=== PATIENT | male | born 1970 | race Caucasian/White ===

== ENCOUNTER 2018-07-19 20:52 | Emergency (ER) | payer MEDICAID, OTHER ==
[~2018-07-19] VITALS: Wt 109.5 kg
[2018-07-20] MEDS ORDERED: CAPT25TA3 PO (00:39)
[2018-07-20] MEDS ORDERED: VERA80TA PO (00:39)
[2018-07-20] MEDS ORDERED: ATOR10TA65 PO (00:39)
[2018-07-20] MEDS ORDERED: LORAZEPAM 2 MG INJ IV ONE (01:00)
--- NOTE | 2018-07-20 02:07 | ERD ---
ER Documentation Chief Complaint Chief Complaint bib self, cc: chills, body aches, headache, n/v x 1 day HPI This very pleasant patient comes in with planes of chills body aches headache nausea vomiting this started suddenly. It started when he was trying to get on a bus to go to travel to [place] for work. He said he felt very anxious at the time as well. Denies any fevers or chills. Denies any other current complaints. ROS All systems reviewed and are negative except as per history of present illness. Medications Home Meds Reported Medications Atorvastatin Calcium (Atorvastatin Calcium) 10 Mg Tablet, 10 MG PO QHS, #30 TAB 07/20/18 Verapamil Hcl* (Calan*) 80 Mg Tablet, 80 MG PO DAILY, TAB 07/20/18 Captopril* (Captopril*) 25 Mg Tablet, 25 MG PO BID, #60 TAB 07/20/18 Allergies Allergies: Coded Allergies: Penicillins (Verified Allergy, Unknown, 07/19/18) PMhx/Soc Hx Alcohol Use: Yes Hx Substance Use: No Hx Tobacco Use: No Smoking Status: Never smoker Physical Exam Vitals Vital Signs Date Temp Pulse Resp B/P (MAP) Pulse Ox O2 O2 Flow FiO2 Time Delivery Rate 07/20/18 82 18 138/95 98 Room Air 00:24 (109) 07/19/18 98.2 98 19 161/100 100 20:57 (120) Physical Exam Const: No acute distress Head: Atraumatic Eyes: Normal Conjunctiva ENT: Normal External Ears, Nose and Mouth. Neck: Full range of motion. No meningismus. Resp: Clear to auscultation bilaterally Cardio: Regular rate and rhythm, no murmurs Abd: Soft, non tender, non distended. Normal bowel sounds Skin: No petechiae or rashes Back: No midline or flank tenderness Ext: No cyanosis, or edema Neur: Awake and alert Psych: Normal Mood and Affect Result Diagram: 07/19/18 2331 07/19/18 2335 Results 24 hrs Laboratory Tests Test 07/19/18 23:31 07/19/18 23:35 07/19/18 23:36 White Blood Count 15.1 10^3/ul Red Blood Count 5.85 10^6/ul Hemoglobin 17.1 g/dl Hematocrit 52.8 % Mean Corpuscular Volume 90.3 fl Mean Corpuscular Hemoglobin 29.2 pg Mean Corpuscular 32.4 g/dl Hemoglobin Concent Red Cell Distribution Width 13.0 % Platelet Count 285 10^3/UL Mean Platelet Volume 9.7 fl Immature Granulocytes % 0.500 % Neutrophils % 64.5 % Lymphocytes % 26.6 % Monocytes % 5.8 % Eosinophils % 1.9 % Basophils % 0.7 % Nucleated Red Blood Cells % 0.0 /100WBC Immature Granulocytes # 0.070 10^3/ul Neutrophils # 9.7 10^3/ul Lymphocytes # 4.0 10^3/ul Monocytes # 0.9 10^3/ul Eosinophils # 0.3 10^3/ul Basophils # 0.1 10^3/ul Nucleated Red Blood Cells # 0.0 10^3/ul Prothrombin Time 13.1 Sec Prothrombin Time Ratio 1.0 INR International 0.98 Normalized Ratio Activated Partial Thromboplast 31.5 Sec Time Urine Color YELLOW Urine Clarity CLEAR Urine pH 6.0 Urine Specific [place] 1.020 Urine Ketones TRACE mg/dL Urine Nitrite NEGATIVE mg/dL Urine Bilirubin NEGATIVE mg/dL Urine Urobilinogen 1+ mg/dL Urine Leukocyte Esterase NEGATIVE Bee/ul Urine Hemoglobin NEGATIVE mg/dL Urine Glucose NEGATIVE mg/dL Urine Total Protein NEGATIVE mg/dl Sodium Level 143 mmol/L Potassium Level 4.0 mmol/L Chloride Level 103 mmol/L Carbon Dioxide Level 27 mmol/L Anion Gap 13 Blood Urea Nitrogen 14 mg/dl Creatinine 0.75 mg/dl Est Glomerular Filtrat > 60 mL/min Rate mL/min Glucose Level 103 mg/dl Calcium Level 9.2 mg/dl Troponin I < 0.012 ng/ml POC Venous Lactate 1.6 mmol/L Current Medications Medications Dose Sig/[place] Start Time Status Last (Trade) Ordered Route PRN Stop Time Admin Dose Reason Admin Lorazepam 1 mg ONCE ONCE 07/20/18 DC 07/20/18 (Ativan) IV 01:00 07/20/18 01:10 01:01 Procedures/MDM EKG: Rate/Rhythm: [Normal Sinus Rhythm] QRS, ST, T-waves: [No changes consistent w/ acute ischemia] Impression: [No evidence of ischemia or arrhythmia] Chest X-ray 1V Interpreted by me: Soft Tissue: No acute abnormalities Bones: No acute abnormalities Mediastinum/Cardiac Silhouette/Lungs: [No acute abnormalities] Medical decision making: Patient's thoracic symptoms have stabilized while in the department and are stable for outpatient follow up. Exam and work up not consistent w/ ischemia, arrhythmia, PE or dissection. Departure Diagnosis: Primary Impression: Anxiety Additional Impression: Chest pain Chest pain type: unspecified Qualified Codes: R07.9 - Chest pain, unspecified Condition: Stable Patient Instructions: Anxiety Reaction BHARATHI LORA Jul 20, 2018 02:06
[2018-07-20 02:15] VITALS: BP 126/61; PULSE 82; RESP 16
== END 2018-07-20 02:38 | disposition home or self-care (01) ==
LOC: E/R 20:52
DX: F41.9 Anxiety disorder, unspecified (principal); R07.9 Chest pain, unspecified
CPT/HCPCS: 36415; 71045; 80048; 81003; 83605; 84484; 85025; 85610; 85730; 87040; 87086; 93005; 96374; J2060; Z7502; Z7610